=== PATIENT | male | born 1995 | race Caucasian/White ===

== ENCOUNTER 2017-02-11 19:19 | Emergency (ER) | payer BC ==
[~2017-02-11] VITALS: Ht 182.9 cm; Wt 119.5 kg
[2017-02-11 19:20] VITALS: BP 155/93
[2017-02-11] MEDS ORDERED: LIDOCAINE 2% MDV 20 ML VIAL SC ONE (21:45)
[2017-02-11] MEDS ORDERED: KEFL500C17 PO (22:00)
== END 2017-02-11 22:15 | disposition home or self-care (01) ==
LOC: M ED 19:19
DX: S61.011A Laceration without foreign body of right thumb without damage to nail, initial encounter (principal); W45.8XXA Other foreign body or object entering through skin, initial encounter; Y92.019 Unspecified place in single-family (private) house as the place of occurrence of the external cause; Y93.89 Activity, other specified; Y99.8 Other external cause status; F17.210 Nicotine dependence, cigarettes, uncomplicated